=== PATIENT | female | born 1955 | race Two or more races ===

== ENCOUNTER 2022-09-23 06:23 | Day surgery (SDC) | payer OTHER ==
[~2022-09-23] VITALS: Ht 167.6 cm; Wt 67.6 kg
[~2022-09-23 06:23] MED LIST: AMLODIP
[2022-09-23] MEDS ORDERED: CILOXAN5 ML OTIC (13:40)
== END 2022-09-23 16:45 | disposition home or self-care (01) ==
LOC: CIR.AMB 06:23
PROVIDERS: ATTEND Otolaryngology Otology & Neurotology
DX: H90.A12 Conductive hearing loss, unilateral, left ear with restricted hearing on the contralateral side (principal); H74.312 Ankylosis of ear ossicles, left ear; H74.12 Adhesive left middle ear disease; Z91.013 Allergy to seafood; Z20.822 Contact with and (suspected) exposure to COVID-19; I10 Essential (primary) hypertension